=== PATIENT | female | born 1995 | race Caucasian/White ===

== ENCOUNTER 2019-06-08 11:11 | Emergency (ER) | payer MEDICAID, SELFPAY ==
[2019-06-08 11:12] VITALS: BP 130/72; PULSE 78; RESP 16; TEMP 37; O2SAT 98; BMI 38.2
--- NOTE | 2019-06-08 11:36 | US_ITS ---
STUDY: FIRST TRIMESTER OBSTETRICAL ULTRASOUND REASON FOR EXAM: Female, 24 years old BLEEDING WITH CLOTS WITH LMP: 04/13/2019 TECHNIQUE: Transvaginal TECHNICAL QUALITY: Adequate. PRIOR ULTRASOUND: None. FINDINGS: There is visualization of a single gestational sac in a normal intrauterine position. The mean sac diameter (MSD) measures 1.0 cm, indicating an estimated gestational age (EGA) of 5 weeks, 5 days. There is a visualized yolk sac. The yolk sac measures 3.3 mm. The placenta is non-visualized. There is visualization of an embryo with no cardiac activity, consistent with intrauterine demise. The crown-rump length (CRL) measures 9.4 mm, indicating an estimated gestational age (EGA) of 7 weeks, 0 days. The estimated gestation age (EGA) by LMP is 8 weeks, 0 days. The estimated date of delivery (BENJAMIN) by LMP is 01/18/2020. The estimated gestation age (EGA) by US is 6 weeks, 3 days. The estimated date of delivery (BENJAMIN) by US is 01/29/2020. The uterus measures 7.9 x 6.4 x 4.2 cm. There is no demonstrated uterine fibroid. The cervix is closed. The right ovary measures 3.6 x 2.9 x 2.4 cm. There is no right ovarian cyst. There is no visualized right adnexal mass or complex lesion. The left ovary measures 3.4 x 2.1 x 1.4 cm. There is no left ovarian cyst. There is no visualized left adnexal mass or complex lesion. There is no fluid in the cul de sac. US/Transvaginal w/Preg US IMPRESSION: 1. Intrauterine WITHOUT identifiable embryonic cardiac activity and discrepant dating. Sonographic findings diagnostic of failure. Electronically Signed: Cisco Boyd MD (Brooks) at 13:12 EST , Service support ,
[2019-06-08 11:53] LABS: Absolute Lymphocyte Count 1.72 X10^3/uL (0.83-4.51); Absolute Neutrophil Count 5.3 X10^3/uL (2.0-7.7); Basophil# 0.03 X10^3/uL; Basophil% 0.4 % (0-1); Eosinophil# 0.05 X10^3/uL; Eosinophils% 0.6 % (0-5); Hematocrit 42.9 % (37-47); Hemoglobin 13.9 g/dL (12.0-15.0); Lymphocyte # 1.72 X10^3/ul (4.0); Lymphocyte % 22.3 % (19-41); Mean Corp Hgb Conc 32.4 g/dL (32-36); Mean Corpuscular Hgb 27.7 pg (27.0-32.0); Mean Corpuscular Volume 85.6 fL (81-99); Mean Platelet Vol. 9.9 fl (6.2-12.0); Monocyte# 0.61 X10^3/uL; Monocyte% 7.9 % (0-10); NRBC Flagged by Analyzer 0 % (0-5); Neutrophil # 5.28 X10^3/uL (2.7-7.7); Neutrophil % 68.5 % (47-70); Platelet Count 259 K/mm3 (150-450); RBC Distribution Width CV 14.1 % (11.6-14.6); RBC Distribution Width SD 44.1 fl (35.1-43.9); Red Blood Count 5.01 M/mm3 (4.2-5.4); White Blood Count 7.7 K/mm3 (4.4-11.0)
[2019-06-08] MEDS: 0.9% Normal Saline 1,000 ML 1000 ML IV (11:53)
[2019-06-08 12:29] LABS: hCG Titer Quant., Serum 2388 mIU/mL (1-3)
--- NOTE | 2019-06-08 13:05 | ED.DCSUM_ITS ---
- ER Visit Summary Date of Service: 06/08/19 Chief Complaint: Vaginal bleeding History of Present Illness: The patient is a 24 F who goes to [employer]. She does not know the person's name. She has an appointment in 2 days. She is a G4, P2 reports that she last had a period on April 13. She states that she had vaginal bleeding that began yesterday. It similar to her typical period. She complains of cramping suprapubic pain is to a 10 at worst and 1-10 currently. States nothing makes this better or worse. Physical Examination: Vitals: Stable. Afebrile. General: Well-nourished and well-developed. Head: Normocephalic atraumatic. Neck: Supple, no lymphadenopathy. No JVD. Nontender. Cardiovascular: Regular rate and rhythm. No murmurs. Respiratory: No respiratory distress. Clear to auscultation bilaterally. Abdominal: Soft, mild suprapubic tenderness to palpation, nondistended, normal bowel sounds. No guarding, rebound, or peritoneal signs. Back: Nontender. Extremities: Nontender, no edema. Skin: Normal color, no rash. Neurologic: Alert and oriented ?3. Cranial nerves II through XII are intact. Normal strength and sensation. Psych: Normal affect. Test Results: CBC is normal. Quantitative hCG is 2388. Blood type is a posi tive. Clinical Impression(s) from Imaging Studies Obstetrics Ultrasound 06/08/19 11:36 IMPRESSION: 1. Intrauterine WITHOUT identifiable embryonic cardiac activity and discrepant dating. Sonographic findings diagnostic of failure. Electronically Signed: Cisco Boyd MD (Brooks) at 13:12 EST , Service support , Emergency Department Course and Treatment: Patient refused pain or nausea medications. She is resting comfortably. She does report that her bleeding is increased here. Treatment Plan: Had a prolonged discussion the patient that she could either be an early that is still viable or more likely an intrauterine demise. She does understand this. She be discharged with instructions to follow-up with her OB in 2 days for another exam as previously scheduled. Return to the emergency department for any worsening symptoms. Disposition: To home in improved and stable condition. Impression: 1. First trimester . 2. Vaginal bleeding. This note was generated with [employer] software. It may contain incorrect words, spelling, and punctuation that were not noted in review of the chart prior to signing ED Disposition - Plan for ED Patient: Disposition: Home or Assisted Living Instructions: POSSIBLE MISCARRIAGE (Threatened ) Referrals: Doctor,Your [STAFF PHYSICIAN] - 2 Days
[2019-06-08 13:43] VITALS: PULSE 80; RESP 18; O2SAT 97
== END 2019-06-08 13:44 | disposition home or self-care (01) ==
PROVIDERS: Emergency Provider Emergency Medicine
DX: O20.9 Hemorrhage in early pregnancy, unspecified (principal); Z3A.00 Weeks of gestation of pregnancy not specified
CPT/HCPCS: 76817; 84702; 85025; 96360; 96361; 99284; J7030; A4216

== ENCOUNTER 2020-08-15 12:18 | Emergency (ER) | payer MEDICAID, SELFPAY ==
[2020-08-15 12:19] VITALS: BP 131/83; PULSE 64; RESP 15; TEMP 36.6; O2SAT 100; BMI 34.4
--- NOTE | 2020-08-15 12:50 | DCINST.ED_ITS ---
ED Disposition - Plan for ED Patient: Instructions: ED Dental Pain Prescriptions: Clindamycin [Cleocin] 300 mg PO 4X/DAY #80 capsule Prescription Printed Hydrocodone Bitart/Apap 5-325 [[place] 5MG-325MG] 1 tablet PO Q6H PRN PRN 3 Days #10 tab PRN Reason: Pain Prescription Printed Referrals: Care Physician,No Primary [Primary Care Provider] -
--- NOTE | 2020-08-15 12:54 | ED.DCSUM_ITS ---
- ER Visit Summary Date of Service: 08/15/20 Chief Complaint: Dental pain History of Present Illness: The patient is a 25 F presenting with dental pain. Patient states this started a few months ago but has been worsening over the past week. She states she had a root canal in March. She states the cap to the root canal fell out in April. She has been taking ibuprofen at home. She has not been able to get into her dentist. She denies fever. Denies other complaints. Physical Examination: Vitals are stable. Patient is afebrile. Alert no acute distress. HEENT exam left upper molar decay, no surrounding fluctuance. No sublingual edema Neck is supple. Lungs are clear and equal bilaterally. Heart is regular rate and rhythm. Extremities are unremarkable. Skin is warm and dry. Remainder of exam is unremarkable. Emergency Department Course and Treatment: Patient was given prescription for [place] and clindamycin due to penicillin allergy. She is advised to follow-up with her dentist. Advised return to ED for worsening complaints. Disposition: Discharge home Impression: Odontalgia This note was generated with [employer] dictation software. It may contain incorrect words, spelling, and punctuation that were not noted in review of the chart prior to signing ED Disposition - Plan for ED Patient: Instructions: ED Dental Pain Prescriptions: Clindamycin [Cleocin] 300 mg PO 4X/DAY #80 capsule Prescription Printed Hydrocodone Bitart/Apap 5-325 [[place] 5MG-325MG] 1 tablet PO Q6H PRN PRN 3 Days #10 tab PRN Reason: Pain Prescription Printed Referrals: Care Physician,No Primary [Primary Care Provider] -
== END 2020-08-15 13:18 | disposition home or self-care (01) ==
LOC: ED 13:01
PROVIDERS: Emergency Provider Emergency Medicine
DX: K08.89 Other specified disorders of teeth and supporting structures (principal); K02.9 Dental caries, unspecified; Z72.0 Tobacco use; Z88.0 Allergy status to penicillin
CPT/HCPCS: 99282

== ENCOUNTER 2021-09-25 11:40 | Emergency (ER) | payer MEDICAID, SELFPAY ==
[2021-09-25 11:41] VITALS: BP 125/88; PULSE 82; RESP 18; TEMP 36.6; O2SAT 100; BMI 34.0
--- NOTE | 2021-09-25 12:10 | EDS_ITS ---
HPI History of Present Illness Chief Complaint: Nausea/Vomiting Informant: patient Onset/Context/Timing Onset: Yesterday Current Severity: Moderate Maximum Severity: Moderate Narrative Narrative: Patient presents with nausea and vomiting that started at 8 PM last evening. She believes she may have food poisoning. No diarrhea. She does complain of left mid abdominal pain. PFSH [facility] Medical History no medical history no medical history Home Medications clindamycin HCl 300 mg PO 4X/DAY #80 capsule 08/15/20 [Rx Last Taken Unknown] dicyclomine 20 mg PO BID PRN #10 tab 09/25/21 [Rx Last Taken Unknown] ondansetron 4 mg PO Q8H PRN #10 tab 09/25/21 [Rx Last Taken Unknown] Allergy/AdvReac Type Severity Reaction Status Date / Time amoxicillin Allergy Hives Verified 09/25/21 11:43 cephalexin Allergy Hives Verified 09/25/21 11:43 Penicillins Allergy Hives Verified 09/25/21 11:43 Social History Smoking Status: Never smoker ROS ROS ED Constitutional Constitutional ED: Denies chills or fever(s) Eyes Eyes: Denies change in vision or discharge from eye(s) ENT ENT ED: Denies discharge from eye(s), rhinorrhea or sore throat Cardiovascular Cardiovascular: Denies chest pain or palpitations Respiratory/Chest Respiratory/Chest: Denies cough or dyspnea Gastrointestinal Gastrointestinal: Reports abdominal pain, nausea and vomiting; Denies diarrhea Genitourinary Genitourinary ED: Denies difficulty urinating or dysuria Musculoskeletal Musculoskeletal: Denies back pain, extremity pain or neck pain Integumentary Denies Abrasions or rash Neurologic Neurologic: Denies headache(s) or weakness Allergic/Immunologic Allergic/Immunologic ED: Denies lip swelling or urticaria EXAM Physical Exam Const Vital Signs: 09/25/21 11:41 09/25/21 13:46 Temperature 98 F Temperature Source Temporal Pulse Rate 82 78 Respiratory Rate 18 14 Blood Pressure 125/88 H 134/78 H Blood Pressure Mean 100 96 Pulse Ox 100 98 Oxygen Delivery Method Room Air Room Air Positive well nourished and well developed General Appearance ED: well developed HEENT Reports moist mucous membranes Eyes PERRL and EOMs intact bilaterally Neck supple Resp normal respiratory effort and clear to auscultation bilaterally Cardio regular rate and regular rhythm GI non-tender Auscultation: hypoactive bowel sounds Palpation: soft Extremity normal to inspection Neuro oriented x3 Sensorium / Orientation: alert Psych mental status grossly normal Skin no rashes or lesions noted MDM MDM MDM Narrative Medical decision making narrative: Patient is given IV fluids along with Zofran and Bentyl. Lab work obtained. Lab Data Attestation: I reviewed the patient's lab results. Labs: Laboratory Results - last 24 hr 09/25/21 09/25/21 09/25/21 12:30 12:30 12:30 WBC 12.8 H RBC 5.31 Hgb 16.2 H Hct 47.8 H MCV 90.0 MCH 30.5 MCHC 33.9 RDW Std Deviation 42.5 RDW Coeff of Kiran 12.9 Plt Count 287 MPV 9.4 Immature Gran % (Auto) 0.300 Neut % (Auto) 94.7 H Lymph % (Auto) 3.3 L Gilchrist % (Auto) 1.5 Eos % (Auto) 0.0 Baso % (Auto) 0.2 Absolute Neuts (auto) 12.1 H Absolute Lymphs (auto) 0.42 L Nucleated RBC % 0 Differential Comment SCANNED Sodium Cancelled Potassium Cancelled Chloride Cancelled Carbon Dioxide Cancelled Anion Gap Cancelled BUN Cancelled Creatinine Cancelled Estim Creat Clear Calc Cancelled Est GFR (MDRD) Af Amer Cancelled Est GFR (MDRD) Non-Af Cancelled BUN/Creatinine Ratio Cancelled Glucose Cancelled Calcium Cancelled Total Bilirubin Cancelled Direct Bilirubin Cancelled AST Cancelled ALT Cancelled Alkaline Phosphatase Cancelled Total Protein Cancelled Albumin Cancelled Globulin Cancelled Lipase Cancelled Serum , Qual Cancelled 09/25/21 09/25/21 13:00 13:00 WBC RBC Hgb Hct MCV MCH MCHC RDW Std Deviation RDW Coeff of Kiran Plt Count MPV Immature Gran % (Auto) Neut % (Auto) Lymph % (Auto) Gilchrist % (Auto) Eos % (Auto) Baso % (Auto) Absolute Neuts (auto) Absolute Lymphs (auto) Nucleated RBC % Differential Comment Sodium 140 Potassium 3.3 L Chloride 113 H Carbon Dioxide 20.0 L Anion Gap 7 BUN 17 Creatinine 0.58 Estim Creat Clear Calc 129.15 Est GFR (MDRD) Af Amer 163 Est GFR (MDRD) Non-Af 135 BUN/Creatinine Ratio 29.3 H Glucose 89 Calcium 7.1 L Total Bilirubin 0.50 Direct Bilirubin 0.12 AST 21 ALT 18 Alkaline Phosphatase 50 Total Protein 5.8 L Albumin 2.8 L Globulin 3.0 Lipase 36 L Serum , Qual NEGATIVE Treatment and Re-Evaluation Narrative: On repeat evaluation patient sleeping comfortably. She easily awakens. She reports significant improvement in her symptoms. White count is slightly elevated, likely an acute reactive from vomiting. Hemoglobin is concentrated at 16.2. Chemistry studies reveal mild hypokalemia with potassium of 3.3. LFTs unremarkable. test is negative. Patient will be discharged with prescription for Zofran and Bentyl. Return instructions provided. Discharge Plan Triage Chief Complaint: Nausea/Vomiting ED Provider: Naomi Tolentino Dx/Rx/DC Orders Clinical Impression: Vomiting Instructions: ED Vomiting (Adult) Prescriptions: New ondansetron 4 mg tablet,disintegrating 4 mg PO Q8H PRN (Reason: nausea and vomiting) Qty: 10 RF: 0 dicyclomine 20 mg tablet 20 mg PO BID PRN (Reason: abdominal cramping) Qty: 10 RF: 0 No Action clindamycin HCl 150 MG capsule 300 mg PO 4X/DAY Qty: 80 RF: 0 Primary Care Provider: Care Physician,No Primary Referrals: Tatyana Naranjo MD [STAFF PHYSICIAN] - As Needed Care Physician,No Primary [Primary Care Provider] - Disposition Disposition: Home, Self Care
[2021-09-25] MEDS: Dicyclomine 20 MG/2 ML Vial IM (12:22)
[2021-09-25] MEDS: Ondansetron 4 MG/2 ML Vial IV (12:22)
[2021-09-25] MEDS: 0.9% Normal Saline 1,000 ML 1000 ML IV (12:22)
[2021-09-25 12:42] LABS: Absolute Lymphocyte Count 0.42 X10^3/uL (0.83-4.51); Absolute Neutrophil Count 12.1 X10^3/uL (2.0-7.7); Basophil# 0.02 X10^3/uL; Basophil% 0.2 % (0-1); Hematocrit 47.8 % (37-47); Hemoglobin 16.2 g/dL (12.0-15.0); Lymphocyte # 0.42 X10^3/ul (0.83-4.51); Lymphocyte % 3.3 % (19-41); Mean Corp Hgb Conc 33.9 g/dL (32-36); Mean Corpuscular Hgb 30.5 pg (27.0-32.0); Mean Platelet Vol. 9.4 fl (6.2-12.0); Monocyte# 0.19 X10^3/uL; Monocyte% 1.5 % (0-10); NRBC Flagged by Analyzer 0 % (0-5); Neutrophil # 12.09 X10^3/uL (2.7-7.7); Neutrophil % 94.7 % (47-70); POSITIVE DIFFERENTIAL YES; Platelet Count 287 K/mm3 (150-450); RBC Distribution Width CV 12.9 % (11.6-14.6); RBC Distribution Width SD 42.5 fl (35.1-43.9); Red Blood Count 5.31 M/mm3 (4.2-5.4); White Blood Count 12.8 K/mm3 (4.4-11.0)
[2021-09-25 12:43] LABS: Differential Indicated SCAN CRITERIA MET
[2021-09-25 12:57] LABS: Differential Comment SCANNED
[2021-09-25 13:13] LABS: Internal QC Validated? YES +Cl - CLEAR BKGD; Pregnancy, Serum, hCG Quali. NEGATIVE Negative
[2021-09-25 13:30] LABS: AST(SGOT) 21 U/L (15-37); Alanine Aminotransfer ALT/SGPT 18 U/L (13-56); Albumin, Serum 2.8 g/dL (3.2-5.0); Alkaline Phosphatase 50 U/L (45-117); Anion Gap 7 (5-15); BUN 17 mg/dL (7-18); BUN/Creat Ratio 29.3 RATIO (10-20); Bilirubin, Direct 0.12 mg/dL (0.00-0.30); Calcium,Total 7.1 mg/dL (8.5-10.1); Chloride 113 mmol/L (98-107); Creatinine, Serum 0.58 mg/dL (0.55-1.02); EST Glomerular Filtration Rate 135 mL/min (>60); Est Glom Filt Rate - Afr Amer 163 mL/min (>60); Estimated Creatinine Clearance 129.15 ml/min; Glucose 89 mg/dL (74-106); Lipase 36 U/L (73-393); Potassium 3.3 mmol/L (3.5-5.1); Protein, Total 5.8 g/dL (6.4-8.2); Sodium Level 140 mmol/L (136-145)
[2021-09-25 13:46] VITALS: BP 134/78; PULSE 78; RESP 14; O2SAT 98
[2021-09-25] MEDS: 0.9% Normal Saline 1,000 ML 150 ML IV (14:37)
[2021-09-25 15:08] VITALS: BP 118/76; PULSE 64; RESP 14; TEMP 36.6; O2SAT 100
== END 2021-09-25 15:09 | disposition home or self-care (01) ==
PROVIDERS: Emergency Provider Emergency Medicine; Visit Provider Emergency Medicine
DX: R11.2 Nausea with vomiting, unspecified (principal); R10.9 Unspecified abdominal pain; E87.6 Hypokalemia
CPT/HCPCS: 80048; 80076; 83690; 84703; 85025; 96361; 96372; 96374; 99283; J7030; A4216; J2405

== ENCOUNTER 2024-02-29 09:02 | Emergency (ER) | payer MEDICAID, SELFPAY ==
[2024-02-29 09:03] VITALS: BP 127/81; PULSE 73; RESP 16; TEMP 36.6; O2SAT 99; BMI 34.7
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
[2024-02-29 10:20] LABS: Absolute Neutrophil Count 5.9 X10^3/uL (2.0-7.7); Basophil# 0.02 X10^3/uL; Basophil% 0.2 % (0-1); Eosinophil# 0.07 X10^3/uL; Eosinophils% 0.8 % (0-5); Hematocrit 41.2 % (37-47); Hemoglobin 13.9 g/dL (12.0-15.0); Lymphocyte % 23.5 % (19-41); Mean Corp Hgb Conc 33.7 g/dL (32-36); Mean Corpuscular Hgb 29.3 pg (27.0-32.0); Mean Corpuscular Volume 86.7 fL (81-99); Mean Platelet Vol. 9.9 fl (6.2-12.0); Monocyte# 0.55 X10^3/uL; Monocyte% 6.5 % (0-10); NRBC Flagged by Analyzer 0 % (0-5); Neutrophil # 5.85 X10^3/uL (2.7-7.7); Neutrophil % 68.9 % (47-70); Platelet Count 248 K/mm3 (150-450); RBC Distribution Width CV 11.9 % (11.6-14.6); RBC Distribution Width SD 38.1 fl (35.1-43.9); Red Blood Count 4.75 M/mm3 (4.2-5.4); White Blood Count 8.5 K/mm3 (4.4-11.0)
[2024-02-29] MEDS: Ondansetron 4 MG/2 ML Vial IV (10:22)
[2024-02-29] MEDS: Metoclopramide 10 MG/2 ML Vial IV (10:22)
[2024-02-29 10:33] LABS: AST(SGOT) 14 U/L (15-37); Alanine Aminotransfer ALT/SGPT 20 U/L (13-56); Albumin, Serum 3.7 g/dL (3.2-5.0); Alkaline Phosphatase 62 U/L (45-117); Anion Gap 7 (5-15); BUN 9 mg/dL (7-18); BUN/Creat Ratio 12.2 RATIO (10-20); Calcium,Total 9.2 mg/dL (8.5-10.1); Chloride 106 mmol/L (98-107); Creatinine, Serum 0.74 mg/dL (0.55-1.02); EST Glomerular Filtration Rate 100 mL/min (>60); Est Glom Filt Rate - Afr Amer 121 mL/min (>60); Globulin 3.8 g/dL (2.2-4.2); Glucose 95 mg/dL (74-106); Lipase 25 U/L (13-75); Potassium 3.5 mmol/L (3.5-5.1); Protein, Total 7.5 g/dL (6.4-8.2); Sodium Level 136 mmol/L (136-145)
[2024-02-29 11:02] VITALS: BP 148/62; PULSE 82; RESP 16; O2SAT 99
[2024-02-29 11:21] LABS: Mucous, Urine 0 SEEN /hpf (<or=2+)
[2024-02-29 11:23] LABS: Color, Urine Yellow (Yellow); Glucose, Dipstick Normal (Normal); Ketone-Dipstick 15 mg/dl (Negative); Leukocyte Esterase-Dipstick 100 /ul (Negative); Nitrite-Dipstick Positive (Negative); Occult Blood-Urine 10 /ul (Negative); Protein-Dipstick 15 mg/dl (Negative); Urine Bilirubin Dipstick Negative (Negative); Urine Clarity Sl. Cloudy (Clear); Urine Urobilinogen Normal (Normal)
[2024-02-29 11:33] LABS: Bacteria 3+ /hpf (None Seen)
[2024-02-29 11:34] LABS: Squamous Epithelial Cells - UA 0-5 SEEN /hpf (5-10); White Blood Cells 5-10 SEEN /hpf (0-5)
[2024-02-29 11:36] LABS: Red Blood Cells-Urine 0-5 SEEN /hpf (0-5)
[2024-02-29 12:01] VITALS: PULSE 76; RESP 19; O2SAT 99
== END 2024-02-29 12:01 | disposition home or self-care (01) ==
PROVIDERS: Emergency Provider Emergency Medicine; Visit Provider Emergency Medicine
DX: O21.9 Vomiting of pregnancy, unspecified (principal); Z3A.00 Weeks of gestation of pregnancy not specified
CPT/HCPCS: 80053; 81001; 83690; 85025; 96374; 96375; 99283; J2405

== ENCOUNTER 2024-07-31 20:50 | Emergency (ER) | payer MEDICAID, SELFPAY ==
[2024-07-31 20:52] VITALS: BP 146/83; PULSE 98; RESP 18; TEMP 36.7; O2SAT 98; BMI 41.1
--- NOTE | 2024-07-31 21:15 | US_ITS ---
PROCEDURE: VENOUS DUPLEX IMAG/LIMITED/UNI 07/31/2024 REASON FOR EXAM: F 29 y/o TECHNIQUE: Grayscale color flow and doppler analysis of the left lower extremity. COMPARISON: None FINDINGS: Filling defect within the left popliteal vein, compatible with acute DVT.. Appropriate respiratory variation, augmentation and venous compression is noted. US/Venous Duplex Imag/Limited/Uni IMPRESSION: Left popliteal vein DVT. Red Alert: The critical information above was relayed directly by me by telephone to Rogerio Menezes on 07/31/2024 at 11:34 pm with readback verification. Reading Location: [facility]
--- NOTE | 2024-07-31 21:32 | EDS_ITS ---
HPI History of Present Illness Chief Complaint: Edema Narrative Narrative: Patient is a G3, P2 female who is currently 32 weeks who presented to the emerged from chief complaint of left lower extremity swelling. According the patient she states that recently her left lower extremity has been swollen and had abnormal sensation to this therefore she called her [facility] and they advised her to come to the emergency department to rule out a blood clot. Was noted when the patient arrived her blood pressure was elevated patient states that with her previous pregnancies she had no complications and no issues with her blood pressure. States that her blood pressure has been completely normal for this entire . Patient denies any history of blood clots. PFSH PFSH Home Medications ?Medication ?Instructions ?Recorded ?Last Taken ?Type nitrofurantoin 100 mg PO Q12 #14 CAPSULES 1 04/30/23 Unknown Rx monohydrate/macrocrystals 100 mg capsule ondansetron 4 mg disintegrating 4 mg PO Q8H PRN PRN Na usea #10 tabs 02/29/24 Unknown Rx tablet vit no.95-ferrous 1 tab PO DAILY 02/29/24 Unk nown History fumarate 28 mg-folic acid 800 mcg tablet ( Multivitamins) promethazine 25 mg rectal 25 mg RECTAL Q6H PRN PRN Rodolfo sea ##6 02/29/24 Unknown Rx suppository (Promethegan) enoxaparin 100 mg/mL subcutaneous 110 mg (1.1 mL) subc ut Q12H 30 08/01/24 Unknown Rx syringe (Lovenox) days #66 mL nitrofurantoin 100 mg PO Q12H 7 days #14 ca ps 08/01/24 Unknown Rx monohydrate/macrocrystals 100 mg capsule (Macrobid) Allergy/AdvReac Type Severity Reaction Status Date / Time amoxicillin Allergy Hives Verified 07/31/24 20:56 cephalexin Allergy Hives Verified 07/31/24 20:56 Penicillins Allergy Hives Verified 07/31/24 20:56 Surgical History H/O wrist surgery Social History Smoking Status: Never smoker ROS ROS ED ROS Narrative Constitutional: Denies fevers, chills, headaches, lightness, dizziness Eyes: Denies change in vision double vision blurry vision spots before eyes Cardiovascular: Denies chest pain or palpitations Respiratory: Denies coughing wheezing shortness of breath Abdomen: Denies abdominal pain nausea vomit diarrhea : Denies urinary symptoms Neurological: Denies numbness, wheeze, tingling Musculoskeletal: Denies back pain complains of left lower extremity swelling as noted above Skin: No evidence of denies rashes or lesions pain in the EXAM Physical Exam Narrative Exam Narrative: General: Patient was lying in bed rest comfortably did not appear to be in acute distress Head: Atraumatic, normocephalic Eyes: PERRL bilateral, EOMI bilateral, no conjunctival injection noted Neck: Soft, supple, trachea midline Cardiovascular: regular rate and rhythm no murmurs gallops rubs noted Respiratory: Clear to auscultation bilaterally no rales rhonchi or wheezes noted Abdomen: Soft, gravid abdomen, no tenderness palpation Musculoskeletal: Compartments are soft compressible in the left lower extremity her left lower extremity is swollen compared to the right Extremities: DP pulses +2/4 in the bilateral lower extremities, +5/5 strength noted in the bilateral upper and lower extremities, Neurological: Patient follow commands that she was at [facility] year is 2024. Sensation grossly intact in the bilateral lower extremities Skin: Warm, dry, intact no rashes or lesions noted Const Vital Signs: 07/31/24 20:52 07/31/24 21:34 07/31/24 23:00 Temperature 98.0 F Temperature Source Oral Pulse Rate 98 68 Respiratory Rate 18 19 H Blood Pressure 146/83 H 145/95 H 108/75 Blood Pressure Mean 104 111 86 Pulse Ox 98 97 Oxygen Delivery Method Room Air Room Air 08/01/24 00:18 Temperature 97.9 F Temperature Source Pulse Rate 82 Respiratory Rate 20 H Blood Pressure 111/65 Blood Pressure Mean 80 Pulse Ox 94 Oxygen Delivery Method MDM MDM MDM Narrative Medical decision making narrative: Patient is a 29-year-old female who presented to the emergency department chief complaint of left lower extremity swelling and concern for DVT. On the differential diagnose includes but not limited to superficial venous thrombosis, DVT, preeclampsia. Once workup is obtained reviewed she will be reevaluated.. Patient's CBC was reviewed and showed no evidence leukocytosis white blood count was 10.7, hemoglobin 0.2, plate count was noted to be 223. Patient sodium normal 136, potassium low at 3.4, creatinine was 0.75. Patient AST and ALT of 15 and 13 respectively total bilirubin normal at 0.18. Patient lipase normal at 28. Patient's urinalysis showed asymptomatic bacteria in this was sent for culture nitrate positive, 100 leukocyte esterase with 5-10 white cells with 3+ bacteria she will be started on Macrobid per Dr. Chandler recommendation. She was given her first dose here. Patient's DVT study was positive for a left popliteal DVT she will be started on Lovenox per [facility] Dr. Chandler recommendation as well she was given her first dose here. Prescription will be sent to the pharmacy. She is advised that she needs to follow-up with her [facility] soon and call their office tomorrow for an appointment. Return with worsening symptoms or concerns. Follow-up and urine culture. She is agreeable with plan as well as significant other at bedside. Lab Data Labs: Laboratory Results - last 24 hr 07/31/24 07/31/24 21:39 21:55 WBC 10.7 RBC 3.83 L Hgb 11.2 L Hct 32.9 L MCV 85.9 MCH 29.2 MCHC 34.0 RDW Std Deviation 39.4 RDW Coeff of Kiran 12.6 Plt Count 223 MPV 9.4 Immature Gran % (Auto) 0.700 Neut % (Auto) 70.9 H Lymph % (Auto) 20.9 [place] % (Auto) 6.0 Eos % (Auto) 1.3 Baso % (Auto) 0.2 Absolute Neuts (auto) 7.6 Absolute Lymphs (auto) 2.25 Nucleated RBC % 0 Sodium 136 Potassium 3.4 Chloride 103 Carbon Dioxide 20.1 L Anion Gap 12 BUN 13 Creatinine 0.75 Estim Creat Clear Calc 135.83 Est GFR (MDRD) Non-Af 112 BUN/Creatinine Ratio 17.5 Glucose 124 H Calcium 9.1 Total Bilirubin 0.18 AST 15 ALT 13 Alkaline Phosphatase 90 Total Protein 6.1 Albumin 3.3 L Globulin 2.8 Albumin/Globulin Ratio 1.2 Lipase 28 Urine Color Yellow Urine Clarity Sl. Cloudy Urine pH 6.0 Ur Specific [place] 1.025 Urine Protein 30 H Urine Glucose (UA) Normal Urine Ketones Negative Urine Occult Blood 10 H Urine Nitrite Positive H Urine Bilirubin Negative Urine Urobilinogen 4 H Ur Leukocyte Esterase 100 H Urine RBC 0 SEEN Urine WBC 5-10 SEEN Ur Squamous Epith Cells 0 SEEN Urine Bacteria 3+ Urine Mucus 0 SEEN Radiography Diagnostic Testing: Clinical Impression(s) from Imaging Studies Venous Duplex 07/31/24 21:15 IMPRESSION: Left popliteal vein DVT. Red Alert: The critical information above was relayed directly by me by telephone to Rogerio Rahman on 07/31/2024 at 11:34 pm with readback verification. Reading Location: [facility] Discharge Plan Triage Chief Complaint: Edema ED Provider: Rogerio Frank Dx/Rx/DC Orders Clinical Impression: Acute deep vein thrombosis (DVT) of left lower extremity, Asymptomatic bacteriuria during Prescriptions: New enoxaparin [Lovenox] 100 mg/mL syringe 110 mg subcut Q12H 30 Days Qty: 66 0RF nitrofurantoin monohyd/m-cryst [Macrobid] 100 mg capsule 100 mg PO Q12H 7 Days Qty: 14 0RF Rx Instructions: must administer with a meal/food No Action PNV cmb#95-ferrous fumarate-FA [ Multivitamins] 28 mg iron- 800 mcg tablet 1 tab PO DAILY promethazine [Promethegan] 25 mg suppository 25 mg RECTAL Q6H PRN PRN (Reason: Nausea) Qty: 6 0RF ondansetron 4 mg tablet,disintegrating 4 mg PO Q8H PRN PRN (Reason: Nausea) Qty: 10 0RF nitrofurantoin monohyd/m-cryst 100 mg capsule 100 mg PO Q12 Qty: 14 0RF Primary Care Provider: Care Physician,No Primary Referrals: Care Physician,No Primary [Primary Care Provider] - Activity Restrictions/Additional Instructions: You need to follow-up with your [facility] in the outpatient setting soon call their office tomorrow for an appointment they want to see you. Follow-up on urine culture take antibiotics as prescribed as well as the blood thinning medication that you are educated on how to use here in the emergency department. Return with worsening symptoms or any concerns. Print Language: Japanese Disposition Disposition: Home, Self Care
[2024-07-31 21:34] VITALS: BP 145/95
[2024-07-31 21:58] LABS: Absolute Lymphocyte Count 2.25 X10^3/uL (0.83-4.51); Absolute Neutrophil Count 7.6 X10^3/uL (2.0-7.7); Basophil# 0.02 X10^3/uL; Basophil% 0.2 % (0-1); Eosinophil# 0.14 X10^3/uL; Eosinophils% 1.3 % (0-5); Hematocrit 32.9 % (37-47); Hemoglobin 11.2 g/dL (12.0-15.0); Lymphocyte # 2.25 X10^3/ul (0.83-4.51); Lymphocyte % 20.9 % (19-41); Mean Corpuscular Hgb 29.2 pg (27.0-32.0); Mean Corpuscular Volume 85.9 fL (81-99); Mean Platelet Vol. 9.4 fl (6.2-12.0); Monocyte# 0.64 X10^3/uL; NRBC Flagged by Analyzer 0 % (0-5); Neutrophil # 7.62 X10^3/uL (2.7-7.7); Neutrophil % 70.9 % (47-70); Platelet Count 223 K/mm3 (150-450); RBC Distribution Width CV 12.6 % (11.6-14.6); RBC Distribution Width SD 39.4 fl (35.1-43.9); Red Blood Count 3.83 M/mm3 (4.2-5.4); White Blood Count 10.7 K/mm3 (4.4-11.0)
[2024-07-31 22:01] LABS: Mucous, Urine 0 SEEN /hpf (<or=2+); Red Blood Cells-Urine 0 SEEN /hpf (0-5); Squamous Epithelial Cells - UA 0 SEEN /hpf (5-10)
[2024-07-31 22:09] LABS: Color, Urine Yellow (Yellow); Glucose, Dipstick Normal (Normal); Ketone-Dipstick Negative (Negative); Leukocyte Esterase-Dipstick 100 /ul (Negative); Nitrite-Dipstick Positive (Negative); Occult Blood-Urine 10 /ul (Negative); Protein-Dipstick 30 mg/dl (Negative); Specific Gravity, Urine 1.025 (1.002-1.030); Urine Bilirubin Dipstick Negative (Negative); Urine Clarity Sl. Cloudy (Clear); Urine Urobilinogen 4 mg/dl (Normal)
[2024-07-31 22:10] LABS: Bacteria 3+ /hpf (None Seen); White Blood Cells 5-10 SEEN /hpf (0-5)
[2024-07-31 22:30] LABS: ALB/GLOB Ratio 1.2 RATIO (0.9-2.4); AST(SGOT) 15 U/L (<=31); Alanine Aminotransfer ALT/SGPT 13 U/L (<=34); Albumin, Serum 3.3 g/dL (3.5-5.0); Alkaline Phosphatase 90 U/L (35-104); Anion Gap 12 (5-15); BUN 13 mg/dL (4-19); BUN/Creat Ratio 17.5 RATIO (10-20); Calcium,Total 9.1 mg/dL (7.6-11.0); Carbon Dioxide 20.1 mmol/L (21.0-32.0); Chloride 103 mmol/L (98-108); Creatinine, Serum 0.75 mg/dL (0.70-1.20); EST Glomerular Filtration Rate 112 (>60); Estimated Creatinine Clearance 135.83 ml/min (50-250); Globulin 2.8 g/dL (2.2-4.2); Glucose 124 mg/dL (70-99); Lipase 28 U/L (13-75); Potassium 3.4 mmol/L (3.3-5.1); Protein, Total 6.1 g/dL (5.9-8.4); Sodium Level 136 mmol/L (133-145); Total Bilirubin 0.18 mg/dL (0.00-1.30)
[2024-07-31 23:00] VITALS: BP 108/75; PULSE 68; RESP 19; O2SAT 97
[2024-08-01] MEDS: Enoxaparin 100 MG/ML Syringe 110 MG SC (00:05)
[2024-08-01] MEDS: Nitrofurantoin Macrocrystals 100 MG Capsule PO (00:05)
[2024-08-01 00:18] VITALS: BP 111/65; PULSE 82; RESP 20; TEMP 36.6; O2SAT 94
== END 2024-08-01 00:35 | disposition home or self-care (01) ==
PROVIDERS: Emergency Provider Emergency Medicine; Referring Provider Emergency Medicine; Visit Provider Emergency Medicine
DX: O22.33 Deep phlebothrombosis in pregnancy, third trimester (principal); I82.432 Acute embolism and thrombosis of left popliteal vein; O26.893 Other specified pregnancy related conditions, third trimester; R82.71 Bacteriuria; Z3A.32 32 weeks gestation of pregnancy
CPT/HCPCS: 80053; 81001; 83690; 85025; 87086; 87088; 87186; 93971; 96372; 99283; A4216

== ENCOUNTER 2024-09-17 18:23 | Inpatient (IN) | payer MEDICAID, SELFPAY ==
[2024-09-17] VITALS (17 sets, daily range): BP systolic 98–141; BP diastolic 57–91; PULSE 77–109; RESP 15–20; TEMP 36.7–37; O2SAT 96–100; BMI 43.0
[2024-09-17 17:31] LABS: AST(SGOT) 15 U/L (<=31); Alanine Aminotransfer ALT/SGPT 11 U/L (<=34); Albumin, Serum 3.4 g/dL (3.5-5.0); Alkaline Phosphatase 115 U/L (35-104); Anion Gap 12 (5-15); BUN 14 mg/dL (4-19); BUN/Creat Ratio 20.6 RATIO (10-20); Calcium,Total 9.3 mg/dL (7.6-11.0); Carbon Dioxide 19.2 mmol/L (21.0-32.0); Chloride 105 mmol/L (98-108); Creatinine, Serum 0.69 mg/dL (0.70-1.20); EST Glomerular Filtration Rate 122 (>60); Globulin 3.2 g/dL (2.2-4.2); Glucose 108 mg/dL (70-99); Potassium 3.9 mmol/L (3.3-5.1); Protein, Total 6.6 g/dL (5.9-8.4); Sodium Level 136 mmol/L (133-145); Total Bilirubin 0.17 mg/dL (0.00-1.30)
[2024-09-17 17:48] LABS: Absolute Lymphocyte Count 2.28 X10^3/uL (0.83-4.51); Absolute Neutrophil Count 8.5 X10^3/uL (2.0-7.7); Basophil# 0.03 X10^3/uL; Basophil% 0.3 % (0-1); Eosinophil# 0.09 X10^3/uL; Eosinophils% 0.8 % (0-5); Hematocrit 36.7 % (37-47); Hemoglobin 12.1 g/dL (12.0-15.0); Lymphocyte # 2.28 X10^3/ul (0.83-4.51); Lymphocyte % 19.4 % (19-41); Mean Corpuscular Hgb 27.9 pg (27.0-32.0); Mean Corpuscular Volume 84.6 fL (81-99); Mean Platelet Vol. 10.1 fl (6.2-12.0); Monocyte# 0.79 X10^3/uL; Monocyte% 6.7 % (0-10); NRBC Flagged by Analyzer 0 % (0-5); Neutrophil # 8.45 X10^3/uL (2.7-7.7); Platelet Count 238 K/mm3 (150-450); RBC Distribution Width CV 13.8 % (11.6-14.6); RBC Distribution Width SD 42.5 fl (35.1-43.9); Red Blood Count 4.34 M/mm3 (4.2-5.4); White Blood Count 11.7 K/mm3 (4.4-11.0)
[2024-09-17 19:21] LABS: Syphilis Antibodies Nonreactive (Nonreactive)
--- NOTE | 2024-09-17 19:35 | PCM.HP.OB ---
HPI - General General Date of Admission: 09/17/24 HPI Narrative DENITA FULLER, is a 29 F at 38.2 weeks gestation who presents for induction of labor from office. She was seen for routine visit and NST. Had deceleration while on NST. Maternal Data Information BENJAMIN Calculator Estimated Delivery Date Method Current WG Current Estimate 09/29/24 Manual 38w 2d PFSH PFSH Medical History (Updated 09/17/24 @ 19:38 by Savannah Zacarias CNM) Obesity affecting Polyhydramnios DVT (deep venous thrombosis) Home Medications ?Medication ?Instructions ?Recorded ?Last Taken ?Type vit no.95-ferrous 1 tab PO DAILY 02/29/24 09/16/24 08:00 History fumarate 28 mg-folic acid 800 mcg tablet ( Multivitamins) enoxaparin 100 mg/mL subcutaneous 120 mg subcut Q12H 09/17/24 09/16/24 22:00 History syringe (Lovenox) Allergy/AdvReac Type Severity Reaction Status Date / Time amoxicillin Allergy Hives Verified 09/17/24 12:44 cephalexin Allergy Hives Verified 09/17/24 12:44 Penicillins Allergy Hives Verified 09/17/24 12:44 Surgical History H/O wrist surgery Social History Smoking Status: Former smoker History Elective abortions Hx Para 2 Spontaneous abortions Hx # Term Pregnancies Ectopic pregnancies Hx # Pregnancies Multiple births # of living children NST FHR Rate Baby A Baseline: 140 Variability:: Moderate Accelerations:: 15 x 15 Decelerations:: None NST Reactive:: Yes FHR Category:: Category I Uterine Activity:: Occasional ROS Eyes Eyes: Denies blurry vision, change in vision or spots in vision ENT HEENT: Denies dizziness or headache(s) Cardiovascular Cardiovascular: Denies abdominal pain, chest pain or dyspnea Respiratory/Chest Respiratory/Chest: Denies cough, dyspnea, shortness of breath at rest or shortness of breath with exertion Gastrointestinal Gastrointestinal: Denies abdominal pain, diarrhea or vomiting Genitourinary Genitourinary: Denies change in urinary stream, difficulty urinating or dysuria Musculoskeletal Musculoskeletal: Reports none Integumentary Integumentary: Denies rash Neurologic Neurologic: Denies dizziness, headache(s), memory loss or weakness Psychiatric Psychiatric: Reports none Vital Signs Vital Signs Vital Signs: 09/17/24 13:01 09/17/24 13:01 09/17/24 13:02 Temperature Temperature Source Temporal Pulse Rate 79 Respiratory Rate Blood Pressure 98/57 L BP Systolic 98 BP Diastolic 57 Pulse Ox 09/17/24 13:02 09/17/24 13:02 09/17/24 13:02 Temperature 98.4 F Temperature Source Pulse Rate Respiratory Rate 16 Blood Pressure BP Systolic BP Diastolic Pulse Ox 97 09/17/24 17:22 09/17/24 17:22 09/17/24 17:22 Temperature Temperature Source Pulse Rate 97 100 Respiratory Rate Blood Pressure 130/78 H BP Systolic 130 BP Diastolic 78 Pulse Ox 09/17/24 17:22 09/17/24 17:23 09/17/24 17:23 Temperature Temperature Source Temporal Pulse Rate Respiratory Rate 16 Blood Pressure BP Systolic BP Diastolic Pulse Ox 98 09/17/24 17:23 09/17/24 17:23 09/17/24 18:36 Temperature 98.6 F Temperature Source Pulse Rate Respiratory Rate Blood Pressure 121/71 H BP Systolic 121 BP Diastolic 71 Pulse Ox 98 09/17/24 18:36 Temperature Temperature Source Pulse Rate 88 Respiratory Rate Blood Pressure BP Systolic BP Diastolic Pulse Ox Weight Weight: 251 lb Body Mass Index (BMI) 43.0 Physical Exam Const alert, oriented x3 and no apparent distress General Appearance: cooperative Orientation / Consciousness: awake Exam Limitations: no limitations HEENT normocephalic Head and Scalp: normal to inspection Eyes General Eye: normal appearance of both eyes Neck full ROM and no lymphadenopathy Lymph Lymphatic: no lymphadenopathy noted Chest inspection of chest normal Resp normal respiratory effort, normal air movement and clear to auscultation bilaterally Effort and Inspection: able to speak in complete sentences and symmetric chest movement Cardio regular rate and regular rhythm GI normal to inspection, nondistended, normoactive bowel sounds Manual OB Exam: presentation cephalic Back/Spine normal ROM Extremity full ROM and no calf tenderness Skin no rashes or lesions noted General Skin Exam: no breakdown Neuro oriented x3 and CN's II-XII intact bilaterally Psych mental status grossly normal and thought process normal Labs Labs Labs: Blood Type A POSITIVE Antibody Screen NEGATIVE Hct 36.7 % (37-47) L Hgb 12.1 g/dL (12.0-15.0) Obstetrics Ultrasound Syphilis Total Ab Nonreactive (Nonreactive) Rhogam given: No Assessment & Plan (1) 38 weeks gestation of : (2) DVT during , antepartum: (3) Excessive weight gain affecting : (4) Polyhydramnios affecting : (5) Encounter for induction of labor: PLAN: Plan DVT in . Currently on Lovenox 108 mg SQ Daily- Last dose was 09/16/24 @10pm Admit to labor and delivery Routine labs/ CMP - per anesthesia request No epidural until after 24 hour of last Lovenox dose GBS negative CE 2 cm- outter os, but funnels to 0.5 TAUS completed to confirm vertex position Plan to start Pitocin at 2 mu/min and increase per policy Unable to place de la rosa bulb due to patient not tolerant of CE Will attmept to place again after epidural Dr. Taveras notified of admission and is collaborating physician
[2024-09-17] MEDS: Lactated Ringers 1,000 ML 50 ML IV (20:12)
[2024-09-17] MEDS: Oxytocin 15 Units/NS 250ml 15 UNITS/250 ML IV.SOLN 2 UNITS IV (20:12)
[2024-09-17] MEDS: fentaNYL-bupivacaine (epidural) 100 ML BAG EPIDURAL (23:53)
[2024-09-18] VITALS (55 sets, daily range): BP systolic 97–122; BP diastolic 51–76; PULSE 67–105; RESP 14–19; TEMP 36.3–37.6; O2SAT 86–100
[2024-09-18] MEDS: Lactated Ringers 1,000 ML 999 ML IV (00:10)
[2024-09-18] MEDS: fentaNYL-bupivacaine (epidural) 100 ML BAG EPIDURAL (03:45)
[2024-09-18] MEDS: Lactated Ringers 1,000 ML 200 ML IV (04:47)
--- NOTE | 2024-09-18 06:49 | PCM.PN.CNM ---
Subjective Subjective Patient seen at bedside. Comfortable with epidural. Left leg is more numb and epidural turned down. Objective Data Objective Data Vital Signs: Vital Signs Temp Pulse Resp BP Pulse Ox 97.5 F L 71 19 H 112/65 100 09/18/24 06:10 09/18/24 06:11 09/18/24 06:10 09/18/24 06:11 09/18/24 06:10 Weight: 251 lb Body Mass Index (BMI) 43.0 Intake & Output: Intake and Output for Last 24 Hours 09/16/24 09/17/24 09/18/24 23:59 23:59 23:59 Intake Total 157.77 / 157.77 1875.83 / 1875.83 Balance 157.77 / 157.77 1875.83 / 1875.83 Lab / Micro Data 09/17/24 16:45 09/17/24 16:45 Labs: Laboratory Results - last 24 hr 09/17/24 16:45: WBC 11.7 H, RBC 4.34, Hgb 12.1, Hct 36.7 L, MCV 84.6, MCH 27.9, MCHC 33.0, RDW Std Deviation 42.5, RDW Coeff of Kiran 13.8, Plt Count 238, MPV 10.1, Immature Gran % (Auto) 0.800, Neut % (Auto) 72.0 H, Lymph % (Auto) 19.4, [place] % (Auto) 6.7, Eos % (Auto) 0.8, Baso % (Auto) 0.3, Absolute Neuts (auto) 8.5 H, Absolute Lymphs (auto) 2.28, Nucleated RBC % 0, Sodium 136, Potassium 3.9, Chloride 105, Carbon Dioxide 19.2 L, Anion Gap 12, BUN 14, Creatinine 0.69 L, Estim Creat Clear Calc 151.50, Est GFR (MDRD) Non-Af 122, BUN/Creatinine Ratio 20.6 H, Glucose 108 H, Calcium 9.3, Total Bilirubin 0.17, AST 15, ALT 11, Alkaline Phosphatase 115 H, Total Protein 6.6, Albumin 3.4 L, Globulin 3.2, Albumin/Globulin Ratio 1.0, Syphilis Total Ab Nonreactive, Blood Type A POSITIVE, Antibody Screen NEGATIVE ROS Eyes Eyes: Denies blurry vision, change in vision or spots in vision ENT HEENT: Denies dizziness or headache(s) Cardiovascular Cardiovascular: Denies abdominal pain, chest pain or dyspnea Respiratory/Chest Respiratory/Chest: Denies cough, dyspnea, shortness of breath at rest or shortness of breath with exertion Gastrointestinal Gastrointestinal: Denies abdominal pain, diarrhea or vomiting Genitourinary Genitourinary: Denies change in urinary stream, difficulty urinating or dysuria Musculoskeletal Musculoskeletal: Reports none Integumentary Integumentary: Denies rash Neurologic Neurologic: Denies dizziness, headache(s), memory loss or weakness Psychiatric Psychiatric: Reports none Physical Exam Const alert, oriented x3 and no apparent distress General Appearance: cooperative Orientation / Consciousness: awake Exam Limitations: no limitations HEENT normocephalic Head and Scalp: normal to inspection Eyes General Eye: normal appearance of both eyes Neck full ROM and no lymphadenopathy Lymph Lymphatic: no lymphadenopathy noted Chest inspection of chest normal Resp normal respiratory effort, normal air movement and clear to auscultation bilaterally Effort and Inspection: able to speak in complete sentences and symmetric chest movement Cardio regular rate and regular rhythm GI normal to inspection, nondistended, normoactive bowel sounds Manual OB Exam: presentation cephalic Back/Spine normal ROM Extremity full ROM and no calf tenderness Skin no rashes or lesions noted General Skin Exam: no breakdown Neuro oriented x3 and CN's II-XII intact bilaterally Psych mental status grossly normal and thought process normal Assessment & Plan (1) Encounter for induction of labor: (2) Polyhydramnios affecting : (3) Excessive weight gain affecting : (4) DVT during , antepartum: (5) 38 weeks gestation of : PLAN: Plan CE /-2- Ballotable- intact Cat. 1 tracing Pitocin at 12 mu/min-continue to increase per orders Dr. Chandler updated on A&P and will be assuming managment
--- NOTE | 2024-09-18 08:53 | PCM.PN.BLA ---
Progress Note pt seen at bedside, resting comfortably with epidural in place. VE: /-3 Bulging and taught membranes- AROM performed. large amt of clear fluid. IUPC and IFM placed. pt tolerated well.
--- NOTE | 2024-09-18 09:44 | EX.PCM.OBVAG ---
Assessment & Plan (1) Vaginal delivery: Maternal Data Information BENJAMIN Calculator Estimated Delivery Date Method Current WG Current Estimate 09/29/24 Manual 38w 3d Vaginal Delivery Maternal Presentation Maternal Presentation: Medically Indicated Induction Type of Induction: Pitocin and Amniotomy Medical Reason for Induction: Compromise: list: ( decelerations, Polyhydramnios, Maternal DVT in on Lovenox ) Vaginal Delivery Information Procedure Performed: Spontaneous Vaginal Delivery Surgeon/Practitioner: Guera Sinclair Date of Procedure: 09/18/24 Pre-Procedure Diagnosis: Polyhydramnios, Maternal DVT in , Maternal Obesity, Post-Procedure Diagnosis: same , live female infant Type of anesthesia: Epidural Estimated Blood Loss: 100 Time of Delivery: 09:37 Findings Description of procedure: Patient progressed to fully dilated. Good maternal pushing efforts delivered the head followed spontaneously by the anterior and posterior shoulders without complication. Infant was vigorous at time of delivery. Delayed cord clamping performed x 60 seconds. Pitocin was started. Cord is then clamped and cut. Placenta delivered intact without complication. No vaginal or perineal lacerations appreciated. Fundus was firm. 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
[2024-09-18] MEDS: Oxytocin 15 Units/NS 250ml 15 UNITS/250 ML IV.SOLN 83 UNITS IV (10:15)
[2024-09-18] MEDS: Ibuprofen 600 MG Tablet PO ×2 (10:39→20:39)
[2024-09-18] MEDS: 0.9% Saline Lock 10 ML Syringe IV (13:18)
[2024-09-18] MEDS: Acetaminophen 500 MG Tablet 1000 MG PO (16:00)
[2024-09-18] MEDS: Enoxaparin 120 MG/0.8 ML Syringe 110 MG SC (22:18)
[2024-09-19 01:00] VITALS: BP 115/78; PULSE 93; RESP 18; TEMP 36.3; O2SAT 99
[2024-09-19 04:45] VITALS: BP 111/64; PULSE 77; RESP 16; TEMP 36.3; O2SAT 98
[2024-09-19] MEDS: Acetaminophen 500 MG Tablet 1000 MG PO (06:00)
[2024-09-19 06:06] LABS: Absolute Lymphocyte Count 2.65 X10^3/uL (0.83-4.51); Absolute Neutrophil Count 10.1 X10^3/uL (2.0-7.7); Basophil# 0.04 X10^3/uL; Basophil% 0.3 % (0-1); Eosinophil# 0.09 X10^3/uL; Eosinophils% 0.6 % (0-5); Hematocrit 33.3 % (37-47); Lymphocyte # 2.65 X10^3/ul (0.83-4.51); Lymphocyte % 18.7 % (19-41); Mean Corpuscular Hgb 28.1 pg (27.0-32.0); Mean Corpuscular Volume 85.2 fL (81-99); Mean Platelet Vol. 9.6 fl (6.2-12.0); Monocyte# 1.21 X10^3/uL; Monocyte% 8.5 % (0-10); NRBC Flagged by Analyzer 0 % (0-5); Neutrophil # 10.07 X10^3/uL (2.7-7.7); Neutrophil % 71.1 % (47-70); Platelet Count 165 K/mm3 (150-450); RBC Distribution Width SD 43.3 fl (35.1-43.9); Red Blood Count 3.91 M/mm3 (4.2-5.4); White Blood Count 14.2 K/mm3 (4.4-11.0)
--- NOTE | 2024-09-19 07:35 | PN.OBGYN_ITS ---
Subjective Subjective Doing well. Ambulating and voiding without difficulty. Mild lochia. Breast feeding. Objective Data Objective Data Vital Signs: Vital Signs Temp Pulse Resp BP Pulse Ox O2 Del Method 97.3 F L 77 16 111/64 98 Room Air 09/19/24 04:45 09/19/24 04:45 09/19/24 04:45 09/19/24 04:45 09/19/24 04:45 09/19/24 04:45 Oxygen Delivery Method Room Air Weight: 113.852 kg Body Mass Index (BMI) 43.0 Intake & Output: Intake and Output for Last 24 Hours 09/17/24 09/18/24 09/19/24 23:59 23:59 23:59 Intake Total 157.77 / 157.77 3342.23 / 3342.23 Output Total 1750 / 1750 Balance 157.77 / 157.77 1592.23 / 1592.23 Lab / Micro Data 09/19/24 05:55 09/17/24 16:45 Labs: Laboratory Results - last 24 hr 09/19/24 05:55: WBC 14.2 H, RBC 3.91 L, Hgb 11.0 L, Hct 33.3 L, MCV 85.2, MCH 28.1, MCHC 33.0, RDW Std Deviation 43.3, RDW Coeff of Kiran 14.0, Plt Count 165, MPV 9.6, Immature Gran % (Auto) 0.800, Neut % (Auto) 71.1 H, Lymph % (Auto) 18.7 L, [place] % (Auto) 8.5, Eos % (Auto) 0.6, Baso % (Auto) 0.3, Absolute Neuts (auto) 10.1 H, Absolute Lymphs (auto) 2.65, Nucleated RBC % 0 ROS Constitutional Constitutional: Denies headache(s) Cardiovascular Cardiovascular: Denies chest pain or dyspnea Gastrointestinal Gastrointestinal: Denies nausea or vomiting Genitourinary Genitourinary: Denies dysuria Physical Exam Const alert, oriented x3 and no apparent distress General Appearance: cooperative and comfortable Eyes PERRL and EOMs intact bilaterally Resp normal respiratory effort GI soft to palpation and non-tender Uterus Palpation: uterus fundus firm ( below umbilicus) Extremity normal to inspection and full ROM Neuro oriented x3 and CN's II-XII intact bilaterally Psych mental status grossly normal Assessment & Plan (1) Vaginal delivery: (2) DVT during , antepartum: PLAN: continue lovenox post
--- NOTE | 2024-09-19 07:36 | PCM.DC.SUM ---
Providers Date of Admission: 09/17/24 Date of Discharge: 09/19/24 Primary Care Physician: Teodora Primary Care Phys Reason For Visit: VAGINAL DELIVERY Diagnosis Discharge Diagnosis (1) Vaginal delivery: Status: Acute Code(s): O80 - Encounter for full-term uncomplicated delivery (2) DVT during , antepartum: Status: Acute Code(s): O22.30 - Deep phlebothrombosis in , unspecified trimester Plan: continue lovenox post Medications at Discharge Home Medications vit no.95-ferrous fumarate 28 mg-folic acid 800 mcg tablet ( Multivitamins) 1 tab PO DAILY 02/29/24 enoxaparin 100 mg/mL subcutaneous syringe (Lovenox) 120 mg subcut Q12H 09/17/24 Hospital Course Operations None Procedures None Summary of Care Provided Minutes Spent on Discharge: 21 Hospital Course: spontaneous labor with . On lovenox for DVT. Breast feeding, Physical Exam Const alert and no apparent distress Narrative: Fundus firm, below umbilicus. Weight / BMI Weight Weight: 113.852 kg Body Mass Index (BMI) 43.0 ABG / Lab / Microbiology Data 09/19/24 05:55 09/17/24 16:45 Laboratory: Laboratory Results - last 24 hr 09/19/24 05:55: WBC 14.2 H, RBC 3.91 L, Hgb 11.0 L, Hct 33.3 L, MCV 85.2, MCH 28.1, MCHC 33.0, RDW Std Deviation 43.3, RDW Coeff of Kiran 14.0, Plt Count 165, MPV 9.6, Immature Gran % (Auto) 0.800, Neut % (Auto) 71.1 H, Lymph % (Auto) 18.7 L, [place] % (Auto) 8.5, Eos % (Auto) 0.6, Baso % (Auto) 0.3, Absolute Neuts (auto) 10.1 H, Absolute Lymphs (auto) 2.65, Nucleated RBC % 0 D/C Instructions May resume sexual activity in: 6 weeks DC O2, CPAP, BIPAP Needs Home O2 Discharge instructions: No Please Follow Up With: Nerissa Fernandez MD When: Follow up with our office in 1-2 and 6 weeks or as needed. [phone] Meaningful Use Info Meaningful Use Meaningful Use Diagnoses (Choose all that apply): None applicable Ischemic Stroke Statin Dosing Therapy Reference: STATIN DOSE THERAPY REFERENCE: * Patients > 75 years receive moderate or high dose statin therapy. * Patients 75 years or YOUNGER should receive HIGH intensity statin dose unless contraindicated. You will be required to document reason for non-treatment if statin daily dose does not meet guidelines. HIGH DOSE STATIN THERAPY DAILY Atorvastatin > than or = to 40 mg Rosuvastatin > than or = to 20 mg Amlodipine + Atorvastatin > than or = to 2.5/40 mg Ezetimibe + Simvastatin 10/80 mg Simvastatin 80mg Discharge Plan Admission Admit Date/Time: 09/17/24 18:23 Primary Reason for Your Visit: labor Attending Provider: Guera Sinclair Primary Care Provider: Tate Physician,Teodora Primary Discharge Orders/Prescriptions Prescriptions: Continued PNV cmb#95-ferrous fumarate-FA [ Multivitamins] 28 mg iron- 800 mcg tablet 1 tab PO DAILY enoxaparin [Lovenox] 100 mg/mL syringe 120 mg subcut Q12H Referrals / Follow Up: Care Physician,No Primary [Primary Care Provider] - Disposition Disposition (needs filled in before D/C Order can be placed): Home, Self Care
[2024-09-19 08:21] VITALS: BP 116/80; PULSE 79; RESP 17; TEMP 36.6
[2024-09-19] MEDS: Enoxaparin 120 MG/0.8 ML Syringe 110 MG SC (10:30)
[2024-09-19 14:18] VITALS: BP 107/81; PULSE 67; RESP 16
--- NOTE | 2024-09-23 13:12 | NURSING ---
Here for follow up weight check for infant. Follow up phone call questions asked. Patient denies any issues, states she feels really good. States her bleeding is minimal. States combo feeding is going well, no questions or concerns at this time.
== END 2024-09-19 18:40 | disposition home or self-care (01) | DRG 560 ==
LOC: WPOUT 18:37 → WP 18:37
PROVIDERS: Admitting Provider Advanced Practice Midwife; Referring Provider Advanced Practice Midwife; Visit Provider Obstetrics & Gynecology
DX: O76 Abnormality in fetal heart rate and rhythm complicating labor and delivery (principal); Z37.0 Single live birth; I82.409 Acute embolism and thrombosis of unspecified deep veins of unspecified lower extremity; O22.33 Deep phlebothrombosis in pregnancy, third trimester; E66.9 Obesity, unspecified; O99.214 Obesity complicating childbirth; O40.3XX0 Polyhydramnios, third trimester, not applicable or unspecified; Z79.01 Long term (current) use of anticoagulants; Z3A.38 38 weeks gestation of pregnancy; Z87.891 Personal history of nicotine dependence
CPT/HCPCS: 59025; 59050; 76815; 80053; 85025; 86780; 86850; 86900; 86901; 99221; A4216; G0378